=== PATIENT | male | born 1975 | race Caucasian/White ===

== ENCOUNTER 2016-07-27 19:40 | Emergency (ER) | payer SELFPAY ==
[~2016-07-27 19:40] MED LIST: ERYTHROMYCIN
[2016-07-27] MEDS ORDERED: NO HOME MEDICATION XX (20:31)
[2016-07-27] MEDS ORDERED: KEFLEX500 M4 PO (21:05)
== END 2016-07-27 21:12 ==
LOC: EDMED 19:40
PROC: 0H9FXZZ Drainage of Right Hand Skin, External Approach (ICD-10-PCS; principal; 2016-07-27)
DX: L02.511 Cutaneous abscess of right hand (principal); F17.210 Nicotine dependence, cigarettes, uncomplicated; Z88.0 Allergy status to penicillin